=== PATIENT | male | born 1970 | race Caucasian/White ===

== ENCOUNTER 2019-07-03 13:02 | Outpatient (CLI) | payer OTHER, SELFPAY ==
--- NOTE | 2019-07-03 13:09 | US_ITS ---
WS: [id number] TESTICULAR ULTRASOUND HISTORY: TESTICULAR MASS, RIGHT COMPARISON: 09/25/2017 TECHNIQUE: Real-time and color Doppler imaging or utilized to perform a testicular ultrasound. Right testicle: 4.5 cm x 2.9 cm x 2.2 cm. Normal size and echogenicity. No mass or torsion. Normal color Doppler is present throughout. Systolic and diastolic velocities are both present. Small simple hydrocele. Right epididymis: RIGHT epididymal head is normal. Adjacent to the epididymal head and posterior to t he superior RIGHT testicle are dilated vessels with thick lewis. Dilated vessels measure up to 3 mm w hich is top normal to slightly enlarged. This corresponds to the palpable abnormality and consistent with a varicocele. Left testicle: 4.2 cm x 2.6 cm x 2.2 cm. Normal size and echogenicity. No mass or torsion. Normal color Doppler is present throughout. Systolic and diastolic velocities are both present. No significant hydrocele. Left epididymis: Small spermatoceles. US/US scrotum [id number] IMPRESSION: 1. No testicular mass or torsion. 2. Right-sided varicocele. Isolated RIGHT varicocele should be further evaluat ed by CT abdomen and pelvis to exclude retroperitoneal tumor. Right-sided varic ocele is more suspicious for retroperitoneal tumor as it drains directly into t he IVC.
== END 2019-07-03 13:03 | disposition home or self-care (01) ==
PROVIDERS: Family Provider Family Medicine; PCP Family Medicine; Visit Provider Family Medicine
DX: N50.9 Disorder of male genital organs, unspecified (principal); I86.1 Scrotal varices
CPT/HCPCS: 76870

== ENCOUNTER 2019-07-09 11:01 | Outpatient (CLI) | payer OTHER, SELFPAY ==
--- NOTE | 2019-07-09 11:10 | CT_ITS ---
WS: [id number] CT ABDOMEN PELVIS TECHNIQUE: Contrast-enhanced CT of the abdomen and pelvis with coronal and sagittal reformatted image s. CLINICAL INFORMATION: TESTICULAR MASS, RIGHT COMPARISON: CT abdomen pelvis September 25, 2017 DLP: [id number] scans at [facility] use at least one of these dose optimization techniques: automat ed exposure control; mA and/or kV adjustment per patient size (includes targeted exams where dose is matched to clinical indication); or iterative reconstruction. FINDINGS: No evidence of retroperitoneal mass or lesion. Mild diffuse fatty infiltration of the liver. Normal s pleen. Normal portal vein and splenic vein. Normal gallbladder. Lung bases are well aerated. Normal g allbladder. Normal pancreas. Adrenal glands are normal. Normal renal parenchymal enhancement. No hydr onephrosis. Sigmoid diverticulosis. No evidence of acute diverticulitis. Incidental fat-containing left inguinal hernia. No abdominal pelvic lymphadenopathy. Incidental fat-containing umbilical hernia. Normal lumba r spine. CT/CT abdomen pelvis w con* [id number] IMPRESSION: 1. No evidence of retroperitoneal mass or lesion. 2. Mild diffuse fatty infiltration the liver. 3. No abdominal or pelvic lymphadenopathy. 4. Sigmoid diverticulosis. No evidence of acute diverticulitis.
[2019-07-09] MEDS: iohexol 300 mg/mL 100 mL Btl IV (12:16)
== END 2019-07-09 11:02 | disposition home or self-care (01) ==
LOC: RADWPI 11:04
PROVIDERS: Family Provider Family Medicine; PCP Family Medicine; Visit Provider Family Medicine
DX: R10.9 Unspecified abdominal pain (principal); N50.9 Disorder of male genital organs, unspecified; K76.0 Fatty (change of) liver, not elsewhere classified; K57.30 Diverticulosis of large intestine without perforation or abscess without bleeding
CPT/HCPCS: 74177; Q9967

== ENCOUNTER 2023-09-03 08:22 | Outpatient (RCR) | payer OTHER, SELFPAY | END 2023-09-16 23:59 | disposition home or self-care (01) | LOC: SPT 08:22 | PROVIDERS: Family Provider Family Medicine; PCP Family Medicine; Visit Provider Neurological Surgery | DX: M54.2 Cervicalgia (principal) | CPT/HCPCS: 97110; 97161 ==

== ENCOUNTER → 2023-11-13 08:35 | Outpatient (BNVA) | payer OTHER, SELFPAY | PROVIDERS: Family Provider Family Medicine; PCP Family Medicine; Visit Provider Family Medicine | DX: E11.9 Type 2 diabetes mellitus without complications (principal); R03.0 Elevated blood-pressure reading, without diagnosis of hypertension; R23.2 Flushing | CPT/HCPCS: 80053; 80061; 84443; 85025; 86140 ==

== ENCOUNTER 2025-03-16 09:59 | Outpatient (CLI) | payer OTHER, SELFPAY ==
--- NOTE | 2025-03-16 10:06 | XR_ITS ---
WS: [id number] Left shoulder, 2 views, 03/16/2025 Clinical Data: rotator cuff injury Comparison: None. Findings: No fractures or dislocations are seen. The AC joint is normal. The adjacent left clavicle, left scapula and ribs are normal. The soft tissues are unremarkable. XR/XR shoulder LT min 2V* [id number] Impression: Negative left shoulder.
== END 2025-03-16 10:00 | disposition home or self-care (01) ==
PROVIDERS: Family Provider Family Medicine; PCP Family Medicine; Visit Provider Family Medicine
DX: M75.100 Unspecified rotator cuff tear or rupture of unspecified shoulder, not specified as traumatic (principal)
CPT/HCPCS: 73030